=== PATIENT | female | born 1980 | race Caucasian/White ===

== ENCOUNTER 2018-01-12 12:21 | Emergency (ER) | payer SELFPAY ==
[~2018-01-12] VITALS: Ht 160 cm; Wt 88.0 kg
[2018-01-12] MEDS ORDERED: CEPH500 PO (12:36)
== END 2018-01-12 13:05 | disposition home or self-care (01) ==
LOC: ER 12:21
DX: L02.811 Cutaneous abscess of head [any part, except face] (principal); L03.811 Cellulitis of head [any part, except face]; Z79.2 Long term (current) use of antibiotics
CPT/HCPCS: 99282